=== PATIENT | male | born 1995 | race Caucasian/White ===

== ENCOUNTER → 2018-08-09 15:57 | Outpatient (CLI) | payer BC, OTHER, SELFPAY ==
--- NOTE | 2018-08-09 16:12 | US_ITS ---
STUDY: SCROTUM ULTRASOUND REASON FOR EXAM: Male, 22 years old. Right groin pain TECHNIQUE: Ultrasound evaluation of the scrotum was performed with color Doppler and static kennedy-scale imaging. COMPARISON: None. FINDINGS: RIGHT TESTICLE In the right hemiscrotum the testicle is measured 5.4 x 3.7 x 2.6 cm. It demonstrated normal vascular flow... The epididymal head measures 1.0 x 1.4 x 0.8 cm. A 3 mm epididymal cyst is noted. There is a small right-sided varicocele and a small right-sided hydrocele. LEFT TESTICLE In the left hemiscrotum the testicle is measured 5.4 x 3.0 x 2.3 cm. It also demonstrated normal vascular flow. No hydrocele formation. A small varicocele. A 1.9 x 1.0 x 0.3 cm oval-shaped area of hypoechogenicity is seen within the subcutaneous tissues in the right. This area may represent a small inflammatory phlegmon or an area of hematoma. US/Testicular with Arterial Flow IMPRESSION: No evidence of any epididymoorchitis. Bilateral small varicoceles A 1.9 x 1.0 x 1.3 cm oval-shaped area of hypoechogenicity in the subcutaneous tissues in the right groin. May represent an inflammatory phlegmon or an area of hematoma Electronically Signed: Taqueria Olson MD at 3:42 EDT Tel , Service support ,
== END ==
LOC: US 16:09
PROVIDERS: Family Provider Preventive Medicine Occupational Medicine; PCP Preventive Medicine Occupational Medicine
DX: N50.9 Disorder of male genital organs, unspecified (principal)
CPT/HCPCS: 76870; 93976

== ENCOUNTER → 2018-09-23 13:31 | Outpatient (CLI) | payer BC, OTHER, SELFPAY ==
--- NOTE | 2018-09-23 | MASS_PTH ---
PATIENT: CHRIST PAUL LOC: [facility] U#:[id number] AGE/SX: 29/M ROOM: RE09/23/[address]: Dr. Marino Champion MD : 1995 BED: DIS: SPEC #: [id number] RECD: 09/23/18 14:18 STATUS: [facility]BELL BRENNAN #: [id number] MEAGHAN: 09/23/18 00:[address]: Marino Champion DEPT: SURGICAL PATHOLOGY RECD BY: Preston Rabago ENTERED: 09/23/18 14:18 SP TYPE: Mass OTHR DR: Dr. Anish Cardenas, [facility] Tissues: Scrotum, NOS Procedures: Surgery Specimen Level IV HEADER OPERATION: Excision scrotal mass PRE-OP DIAGNOSIS: Benign neoplasm of scrotum TISSUE SUBMITTED: Scrotal mass MICROSCOPIC DIAGNOSIS Scrotal mass, biopsy: Consistent with epidermal inclusion cyst with associated acute and chronic inflammation and granulation. AM:razia 09/26/18 COMMENT Cyst rupture with associated inflammation and reactive change is favored. Clinical correlation is suggested. MICROSCOPIC DESCRIPTION Slides are reviewed. GROSS DESCRIPTION Received is one container labeled with the patient's name and not further designated. The specimen consists of an elongated fragment of bobo skin with attached pink-yellow fibrofatty tissue measuring 2.5 x 0.7 x 0.5 cm. No orientation is provided. No mass lesions are identified. The specimen is bisected along its long axis and totally submitted in one cassette. / AM:razia 09/23/18 TC:2 CPT: 80010
== END ==
PROVIDERS: Family Provider Preventive Medicine Occupational Medicine; PCP Preventive Medicine Occupational Medicine; Referring Provider Urology; Visit Provider Urology
DX: D29.4 Benign neoplasm of scrotum (principal)
CPT/HCPCS: 88305